=== PATIENT | female | born 1935 | race Caucasian/White ===

== ENCOUNTER 2018-05-13 17:07 | Emergency (ER) | payer MEDICARE, MEDICAID ==
[2018-05-13 17:07] VITALS: BMI 25.9
[2018-05-13 17:33] VITALS: O2SAT 97
--- NOTE | 2018-05-13 20:14 | C.PDOC ---
History Of Present Illness 83 y/o female comes to ED stating that she who woke up this morning with palpitations that feel like fluttering, with no associated lightheadedness, SOB, or chest pain. States he occasionally gets palpitations on and off but today it lasted the whole day. Patient has no other complaints. Time Seen by Provider: 05/13/18 19:10 Chief Complaint (Nursing): Palpitations History Per: Patient History/Exam Limitations: no limitations Onset/Duration Of Symptoms: Hrs Current Symptoms Are (Timing): Still Present Past Medical History Reviewed: Historical Data, Nursing Documentation, Vital Signs Vital Signs: Last Vital Signs Temp 98.2 F 05/13/18 17:30 Pulse 90 05/13/18 17:30 Resp 18 05/13/18 17:30 BP 140/86 05/13/18 17:30 Pulse Ox 97 05/13/18 17:30 - Medical History PMH: Anemia, Arthritis, Asthma, Bronchitis, Emphysema, HTN, Hypercholesterolemia, Hyperthyroidism (THYROIDECTOMY 1998), Hypothyroidism, Pneumonia, Rheumatoid Arthritis Denies: Chronic Kidney Disease Family History: States: No Known Family Hx - Social History Hx Tobacco Use: No Hx Alcohol Use: No Hx Substance Use: No - Immunization History Hx Tetanus Toxoid Vaccination: No Hx Influenza Vaccination: Yes Hx Pneumococcal Vaccination: No Review Of Systems Constitutional: Negative for: Fever, Chills Cardiovascular: Positive for: Palpitations. Negative for: Chest Pain, Light Headedness Respiratory: Negative for: Cough, Shortness of Breath Gastrointestinal: Negative for: Vomiting Physical Exam - Physical Exam Appears: Non-toxic, No Acute Distress Skin: Warm, Dry Head: Atraumatic, Normacephalic Eye(s): bilateral: Normal Inspection, PERRL, EOMI Oral Mucosa: Moist Neck: Supple Chest: Symmetrical Cardiovascular: Rhythm Irregular, No Murmur Respiratory: Normal Breath Sounds, No Rales, No Rhonchi, No Wheezing Gastrointestinal/Abdominal: Soft, No Tenderness Extremity: Bilateral: Atraumatic, Normal Color And Temperature, Normal ROM Neurological/Psych: Oriented x3, Normal Speech ED Course And Treatment - Laboratory Results Result Diagrams: 05/13/18 20:30 05/13/18 21:53 Lab Interpretation: No Acute Changes ECG: Interpreted By Me, Viewed By Me ECG Rhythm: Atrial Fibrillation Rate From EC O2 Sat by Pulse Oximetry: 97 (RA) Pulse Ox Interpretation: Normal Reevaluation Time: 22:36 Reassessment Condition: Improved - Physician Consult Information Outcome Of Conversation: Case discussed with Dr Mao and Dr Alonzo. Dr Alonzo did see patient in the office today. He states that he will not cardiovert her because it is unknown how long she has been in afib. Dr Mao advised s tarting Eliquis 5mg daily and she will see patient in the office tomorrow. Disposition Counseled Patient/Family Regarding: Studies Performed, Diagnosis, Need For Followup, Rx Given - Disposition Referrals: Brittany Mao MD [Staff Provider] - Disposition: HOME/ ROUTINE Disposition Time: 22:38 Condition: STABLE Prescriptions: Apixaban [Eliquis] 5 mg PO DAILY #90 tab Instructions: Atrial Fibrillation Forms: [employer] (Icelandic) Print Language: SAUDI ARABIAN - Clinical Impression Clinical Impression: Atrial fibrillation - Scribe Statement Yenny Lincoln Provider Attestation: All medical record entries made by the Scribe were at my direction and personally dictated by me. I have reviewed the chart and agree that the record accurately reflects my personal performance of the history, physical exam, medical decision making, and the department course for this patient. I have also personally directed, reviewed, and agree with the discharge instructions and disposition.
[2018-05-13 20:36] LABS: BASO # 0.1 K/uL (0.0-0.2); BASO % 0.6 % (0.0-2.0); EOS # 0.1 K/uL (0.0-0.7); EOS % 0.8 % (0.0-4.0); HEMOGLOBIN 13.9 g/dL (11.0-16.0); LYMPH # 1.5 K/uL (1.0-4.3); LYMPH % 13.7 % (20.0-40.0); MEAN CELL VOLUME 89.5 fL (81.0-99.0); MEAN CORPUSCULAR HEMOGLOBIN 29.8 pg (27.0-31.0); MEAN CORPUSCULAR HGB CONC 33.3 g/dL (33.0-37.0); MEAN PLATELET VOLUME 7.9 fL (7.2-11.7); MONO # 0.7 K/uL (0.0-0.8); MONO % 6.6 % (0.0-10.0); NEUT # 8.6 K/uL (1.8-7.0); NEUT % 78.3 % (50.0-75.0); NRBC % 0.1 % (0.0-2.0); RBC 4.68 Mil/uL (3.80-5.20)
[2018-05-13 22:02] LABS: ALB/GLOB RATIO 1.4 (1.0-2.1); ALBUMIN 4.8 g/dL (3.5-5.0); ALT/SGPT 15 U/L (9-52); AST/SGOT 18 U/L (14-36); BLOOD UREA NITROGEN 15 mg/dL (7-17); CALCIUM 9.1 mg/dl (8.6-10.4); GFR NON-AFRICAN AMERICAN > 60
[2018-05-14 02:43] VITALS: BP 138/84; PULSE 86; RESP 16; TEMP 98.3
--- NOTE | 2018-05-14 08:40 | RAD ---
Date of service: 05/13/2018 HISTORY: Palpations COMPARISON: Portable chest 04/13/2016. FINDINGS: LUNGS: Diffuse interstitial pulmonary changes persist with potential bibasilar limited patchy infiltrates or atelectasis. Improved inspiratory volume. PLEURA: No significant pleural effusion identified, no pneumothorax apparent. CARDIOVASCULAR: Calcific atherosclerotic changes are seen related to the thoracic aorta. Normal cardiac size. No pulmonary vascular congestion. OSSEOUS STRUCTURES: No significant abnormalities. VISUALIZED UPPER ABDOMEN: Normal. OTHER FINDINGS: None. IMPRESSION: Persistent widespread interstitial pulmonary disease with potential infiltrates atelectasis or concentrated fibrosis at the bases in particular. No significant interval change other than improved inspiratory volume. No pulmonary vascular congestion.
--- NOTE | 2018-05-14 23:24 | CARD ---
APPROVED REPORT Date of service: 05/13/2018 EKG Measurement Heart [id number] <Conclusion> Atrial fibrillation Abnormal ECG
== END 2018-05-13 23:06 | disposition home or self-care (01) ==
LOC: C.ER 17:07
DX: I48.91 Unspecified atrial fibrillation (principal)